=== PATIENT | female | born 1980 | race Caucasian/White ===

== ENCOUNTER 2021-01-19 06:46 | Emergency (ER) | payer OTHER ==
[2021-01-19 07:06] VITALS: BMI 29.5
[2021-01-19] MEDS ORDERED: ACETAMINOPHEN 1000 MG/100 ML VIAL (NON FORMULARY) IVPB ONE (07:27)
[2021-01-19] MEDS ORDERED: SODIUM CHLORIDE 1,000 ML IV STA ×2 (07:27→09:30)
[2021-01-19] MEDS ORDERED: METOCLOPRAMIDE HCL INJECTION 10 MG/2 ML VIAL IVPB ONE (07:27)
[2021-01-19] MEDS ORDERED: guaiFENesin/CODEINE 10 ML UNIT-DOSE CUPS PO ONE (07:27)
[2021-01-19] MEDS ORDERED: METOCLOPRAMIDE HCL INJECTION 10 MG/2 ML VIAL ONE (07:52)
[2021-01-19] MEDS ORDERED: ACETAMINOPHEN INJECTION 100 ML IVPB ONE (07:52)
[2021-01-19] MEDS ORDERED: FAMOTIDINE 20 MG/50 ML IVPB 20 MG/50 ML MG IVPB ONE (07:52)
[2021-01-19] MEDS ORDERED: guaiFENesin/CODEINE 5 ML UNIT-DOSE CUPS PO ONE (07:55)
[2021-01-19 09:08] LABS: BASO % 0.2 % (0-2.0); HEMATOCRIT 38.4 % (32.4-45.2); HEMOGLOBIN 13.7 GM/dL (10.7-15.3); LYMPH % 9.9 % (8-40); MCH 32.2 pg (25.7-33.7); MCHC 35.7 g/dl (32.0-36.0); MEAN CELL VOLUME 90.2 fl (80-96); MONO % 5.1 % (3.8-10.2); NEUT % 84.8 % (42.8-82.8); PLATELET COUNT 255 K/MM3 (134-434); RBC 4.26 M/mm3 (3.60-5.2); RDW 12.2 % (11.6-15.6); WHITE BLOOD COUNT 9.2 K/mm3 (4.0-10.0)
[2021-01-19 09:15] LABS: CHLORIDE 103 mmol/L (98-107); SODIUM 138 mmol/L (136-145)
[2021-01-19 09:19] LABS: ALBUMIN 3.2 g/dl (3.4-5.0); ANION GAP 10 MMOL/L (8-16); CALCIUM 8.2 mg/dL (8.5-10.1); CO2 25 mmol/L (21-32); GLUCOSE,RANDOM 99 mg/dL (74-106)
[2021-01-19 09:20] LABS: BLOOD UREA NITROGEN 11.9 mg/dL (7-18)
[2021-01-19 09:22] LABS: CREATININE 0.7 mg/dL (0.55-1.3); SGPT/ALT 69 U/L (13-61)
[2021-01-19 09:23] LABS: SGOT/AST 57 U/L (15-37)
[2021-01-19 09:24] LABS: BILIRUBIN,TOTAL 0.8 mg/dL (0.2-1); TOT PROT 6.9 g/dl (6.4-8.2)
[2021-01-19 09:25] LABS: ALK PHOS 88 U/L (45-117)
[2021-01-19 15:14] VITALS: BP 108/58; PULSE 82; TEMP 99.4
== END 2021-01-19 11:42 | disposition home or self-care (01) ==
LOC: JER 06:46
PROC: 3E033NZ Introduction of Analgesics, Hypnotics, Sedatives into Peripheral Vein, Percutaneous Approach (ICD-10-PCS; principal; 2021-01-19)
PROC: 3E033GC Introduction of Other Therapeutic Substance into Peripheral Vein, Percutaneous Approach (ICD-10-PCS; 2021-01-19)
PROC: 3E0337Z Introduction of Electrolytic and Water Balance Substance into Peripheral Vein, Percutaneous Approach (ICD-10-PCS; 2021-01-19)
DX: U07.1 COVID-19 (principal); R11.2 Nausea with vomiting, unspecified
CPT/HCPCS: 36415; 71046-TC-FY; 80053; 82550; 83605; 84484; 84703; 85025; 93005; 93010; 99285-25; J0131

== ENCOUNTER 2021-01-21 01:14 | Emergency (ER) | payer OTHER ==
[2021-01-21 01:39] VITALS: TEMP 99; BMI 29.5
[2021-01-21] MEDS ORDERED: ONDANSETRON *ODT* 4 MG TABLET SL ONE (02:50)
[2021-01-21] MEDS ORDERED: ONDANSETRON *ODT* 4 MG TABLET ONE (02:53)
[2021-01-21] MEDS ORDERED: SODIUM CHLORIDE 0.9% 500 ML INFUS.BAG IV ONE (03:29)
[2021-01-21] MEDS ORDERED: ACETAMINOPHEN 325 MG TABLET (FP) PO ONE (04:26)
[2021-01-21] MEDS ORDERED: ACETAMINOPHEN 325 MG TABLET (FP) ONE (04:48)
[2021-01-21 05:04] VITALS: BP 109/78; PULSE 60
== END 2021-01-21 05:04 | disposition home or self-care (01) ==
LOC: JER 01:14
DX: R11.10 Vomiting, unspecified (principal); U07.1 COVID-19
CPT/HCPCS: 93005; 93010; 99284-25; Q0162

== ENCOUNTER 2023-03-22 18:42 | Emergency (ER) | payer OTHER ==
[2023-03-22 18:51] VITALS: BP 104/72; PULSE 91; RESP 18; TEMP 98.2; BMI 31.8
[2023-03-22] MEDS ORDERED: valACYclovir HCL 1000 MG TABLET PO ONE (20:03)
[2023-03-22] MEDS ORDERED: valACYclovir HCL 500 MG TABLET (FP) ONE (20:11)
== END 2023-03-22 20:18 | disposition home or self-care (01) ==
LOC: JER 18:42 → JERFT 18:42
DX: B00.9 Herpesviral infection, unspecified (principal); K13.70 Unspecified lesions of oral mucosa
CPT/HCPCS: 36415; 87529; 99283-25